=== PATIENT | female | born 1995 | race Caucasian/White ===

== ENCOUNTER 2017-02-21 08:46 | Inpatient (IN) | payer BC ==
[~2017-02-21 08:46] MED LIST: Buffered Lidocaine 0.9% SYRIN* 5 ML/SYR SYRINGE INTRADERM ONE; Buffered Lidocaine 0.9% SYRIN* 5 ML/SYR SYRINGE ONE; Ciprofloxacin 400MG IVPREMIX(* 400 MG/200 ML BAG ONE; Clindamycin 900 MG IVPREMIX(* 900 MG/50 ML SDV IV ONE; Dexamethasone IV* 4 MG/ML 1 ML (4 MG) IV SLOW PU ONE; Dexamethasone IV* 4 MG/ML 1 ML (4 MG) ONE; Famotidine IV* 10 MG/ML 2 ML (20 mg) IV ONE; Famotidine IV* 10 MG/ML 2 ML (20 mg) ONE; Heparin VIAL(*) 5000 UNITS/ML VIAL (FIVE THOUSAND) ONE
[2017-02-21] MEDS ORDERED: Midazolam* 1 MG/ML 10 ML VIAL (10 MG) ONE (10:53)
[2017-02-21] MEDS ORDERED: fentaNYL* 50 MCG/ML 5 ML VIAL (250 MCG VIAL) ONE (10:53)
[2017-02-21] MEDS ORDERED: Bupivacaine 0.25% SDV* 30 ML ONE ×2 (11:10→12:07)
[2017-02-21] MEDS ORDERED: Lidocaine 2% PF * 5 ML VIAL ONE (11:13)
[2017-02-21] MEDS ORDERED: Propofol* 10 MG/ML 20 ML BTL IV PUSH ONE (11:13)
[2017-02-21] MEDS ORDERED: Ondansetron INJ* 2 MG/ML VIAL ONE ×2 (11:13→13:27)
[2017-02-21] MEDS ORDERED: Ketorolac INJ* 30 MG/ML 1 ML VIAL ONE (11:13)
[2017-02-21] MEDS ORDERED: DiMENhydriNATE IV* 50 MG/ML VIAL IV PUSH PRN (11:58)
[2017-02-21] MEDS ORDERED: Scopolamine 1.5 mg* PATCH TRANSDERM PRN (11:58)
[2017-02-21] MEDS ORDERED: fentaNYL* 50 MCG/ML 2 ML VIAL (100 MCG VIAL) IV PRN (11:58)
[2017-02-21] MEDS ORDERED: Ondansetron INJ* 2 MG/ML VIAL IV PRN ×3 (11:58→13:00)
[2017-02-21] MEDS ORDERED: HYDROmorphone INJ* 1 MG/ML CARPUJECT SYRINGE IV PRN (11:58)
[2017-02-21] MEDS ORDERED: fentaNYL* 50 MCG/ML 2 ML VIAL (100 MCG VIAL) ONE ×2 (12:04→12:43)
[2017-02-21] MEDS ORDERED: diPHENhydraMINE IV* 50 MG/ML 1 ml VIAL (BENADRYL) SLOW PUSH PRN ×2 (12:58→13:00)
[2017-02-21] MEDS ORDERED: Ketorolac INJ* 30 MG/ML 1 ML VIAL IV PRN (12:58)
[2017-02-21] MEDS ORDERED: HYDROmorphone INJ* 2 MG/ML CARPUJECT SYRINGE IV PRN (12:58)
[2017-02-21] MEDS ORDERED: HYDROcodone/ACET. 7.5/325 LIQ* 15 ML UDC PO PRN (13:00)
[2017-02-21] MEDS ORDERED: Acetaminophen ADULT LIQ* 650 MG/20.3 ML UDC PO PRN (13:00)
--- NOTE | 2017-02-21 13:00 | SURGPN ---
Brief Operative Note - Surgery Procedures: Procedures Pre-OP Diagnoses: Clinically severe obesity Post-op Diagnosis: same Procedure: Laparoscopic sleeve gastrectomy Surgeon: Ryann Asst: Matti Brownthemartha: DIEGO Foster EBL: minimal IVF: 1200cc LR Specimen: portion of stomach Drains: none
[2017-02-21] MEDS ORDERED: Dextrose 50% Syringe 50 ML* 25 GM/50 ML SYRINGE IV PUSH PRN (13:03)
[2017-02-21] MEDS ORDERED: Scopolamine 1.5 mg* PATCH ONE (13:28)
[2017-02-21] MEDS ORDERED: Heparin VIAL(*) 5000 UNITS/ML VIAL (FIVE THOUSAND) SUBCUT SCH (14:00)
[2017-02-21] MEDS: Ketorolac INJ* 30 MG/ML 1 ML VIAL IV PRN (17:35)
[2017-02-21] MEDS ORDERED: PROCHLORPERAZINE INJ 5 MG/ML 2 ML VIAL IV PRN (18:01)
[2017-02-21] MEDS: Insulin LISPRO* 1 UNITS UNIT SUBCUT SCH (18:17)
[2017-02-21] MEDS: HYDROmorphone INJ* 2 MG/ML CARPUJECT SYRINGE IV PRN (19:59)
[2017-02-21] MEDS ORDERED: Famotidine IV* 10 MG/ML 2 ML (20 mg) IV SLOW PU SCH (21:00)
[2017-02-21] MEDS: Heparin VIAL(*) 5000 UNITS/ML VIAL (FIVE THOUSAND) SUBCUT SCH (22:01)
[2017-02-21] MEDS: Famotidine IV* 10 MG/ML 2 ML (20 mg) IV SLOW PU SCH (22:01)
[2017-02-22] MEDS: Insulin LISPRO* 1 UNITS UNIT SUBCUT SCH ×3 (00:02→12:09)
[2017-02-22] MEDS: Ketorolac INJ* 30 MG/ML 1 ML VIAL IV PRN ×2 (01:53→07:55)
[2017-02-22] MEDS: Heparin VIAL(*) 5000 UNITS/ML VIAL (FIVE THOUSAND) SUBCUT SCH (05:21)
[2017-02-22] MEDS: HYDROmorphone INJ* 2 MG/ML CARPUJECT SYRINGE IV PRN (05:21)
[2017-02-22 07:34] VITALS: BP 131/73
[2017-02-22] MEDS: Famotidine IV* 10 MG/ML 2 ML (20 mg) IV SLOW PU SCH (09:41)
[2017-02-22] MEDS ORDERED: D5W 1/2 NS KCl 20 Meq 1000 ML* 1,000 ML IV SCH ×2 (13:00→13:01)
--- NOTE | 2017-02-22 21:37 | DS ---
CC: ; Dr. Garzon, [facility] * DISCHARGE SUMMARY: DATE OF ADMISSION: 02/21/17 DATE OF DISCHARGE: 02/22/17 HOSPITAL COURSE: Ms. Perez is 21-year-old female, worked up as an outpatient with diagnosis of clinically severe obesity, who presented on same day of surgery on 02/21/17 and underwent a laparoscopic sleeve gastrectomy, uneventful procedure. The patient was transferred to the PACU and then on to the short- stay surgical unit. She was maintained n.p.o. in the overnight time, was given IV fluids and by postoperative day 1, was started on clear diet, tolerated it well and was planned for discharge home. PHYSICAL EXAMINATION: On day of discharge, the patient was examined. She was afebrile. Vital signs were stable. Alert, oriented x3, in no apparent distress. Head, ears, eyes, nose, and throat: Normocephalic, atraumatic. Sclerae anicteric. Mucous membranes are moist. Lungs: Clear to auscultation bilaterally. Abdomen: Soft, nondistended, nontender. Her dressing is intact. Extremities: Within normal limits. No calf tenderness. PLAN: Discharge home. Follow up on Sunday at [facility]. The patient will resume her multivitamins. We will hold her metformin. She will stop ibuprofen p.r.n. and the patient understands the plan. She understands to contact our office should there be any problems in the early postoperative course. [id number]/[facility] #: [id number] MIRI
[2017-02-24] MEDS ORDERED: Scopolamine PATCH Remove* 1 NOTE MISC PATCH OFF ONE (11:59)
--- NOTE | 2017-02-27 23:38 | OP ---
CC: Rosy Robles NP; [facility] * DATE OF OPERATION: 02/21/17 - ROOM #[id number] DATE OF : [birth year] SURGEON: Ernesto Garzon MD QUALITY ASSURANCE COACH: GEOFFREY Romero ANESTHESIOLOGIST: Dr. Foster. ANESTHESIA: General Anesthesia. PRE-OP DIAGNOSIS: Clinically severe obesity. POST-OP DIAGNOSIS: Clinically severe obesity. OPERATIVE PROCEDURE: Laparoscopic sleeve gastrectomy. ESTIMATED BLOOD LOSS: Minimal blood loss. FLUIDS: 1200 cc of crystalloid fluid given. SPECIMEN: Portion of stomach. DRAINS: None. DESCRIPTION OF PROCEDURE: The patient was identified in the preoperative area, case was discussed with her and her family members. She signed consent and was marked, and brought to the operating room, placed on the operating room table in the supine position. Preoperative antibiotics were given. Sequential devices were placed on bilateral lower extremities. General anesthesia was induced and the patient's abdomen was prepped and draped in the standard surgical fashion. Time- out was performed. Folds of the umbilicus were elevated anteriorly and a Veress needle was attempted to be inserted in the abdominal cavity. This proved difficult. We were not able to insufflate the abdomen and so this was abandoned. An incision was made at the Hare's point two fingerbreadths below the left costal margin. This was deepened down to the fascia which was elevated and a Veress needle inserted into the abdominal cavity, which then easily insufflated to a pressure of 15 mmHg without any difficulty. A 12-mm trocar was inserted at the upper midline. Laparoscope was inserted through this. There was no evidence of injury from the trocar insertion or from the Veress needle, which was then removed. We also reviewed the umbilicus and it showed no evidence of entry into the abdomen through that attempted umbilical Veress needle insertion. Next , two 5-mm were placed in the left upper quadrant and then a 12-mm in the right upper quadrant. Table was placed in the deep reverse Trendelenburg. Jessee retractor was inserted through the subxiphoid port site and the liver was retracted anteriorly into the right to expose the gastroesophageal fat pad. The fat pad was grasped and retracted towards the right lower quadrant. Blunt dissection was carried out to expose the left crura. There was no evidence of hiatal hernia. Next, approximately 6 cm from pylorus was counted off along the greater curvature. A retrogastric dissection was carried out and the vasculature of the greater curvature was taken right up to the angle of His with LigaSure device. We also took the posterior attachments until the stomach was able to be completely rotated along its axis. Hemostasis was excellent and next a 60-mm purple LISANDRA stapling device with reinforcement strips was placed at approximately 6 cm from the pylorus and the greater curvature and extending this towards the incisura. A 40-Swiss bougie was then inserted distal to this into the distal antrum and the stapler was taken. We sleeve with additional johnna of the same type with 60-mm LISANDRA staplings with reinforcement straps right up to the angle of His. The last staple was a 45-mm with similar strips. The staple line lay flat without any evidence of corkscrewing. Hemostasis was excellent. The resected portion of the stomach was then placed in an endoscopic retrieval bag. The Jessee retractor was removed. We did note that there were some ischemic changes to the superior aspect of the spleen. The right upper quadrant incision was then dilated with Carmen clamp and we removed the specimen. Next, a Weck fascial device was used to close the right upper quadrant port site using a 0 Polysorb suture. The abdomen was then allowed to collapse. Trocars were removed under direct vision and all 5 skin incisions were reapproximated with skin johnna followed by sterile dressing. The patient tolerated the procedure well, was woken up in the OR, transferred to PACU in stable condition. [id number]/[facility] #: [id number] MIRI
== END 2017-02-22 13:40 | disposition home or self-care (01) | DRG 403 ==
LOC: AA 08:46 → SSU 15:14
PROVIDERS: ADMIT Surgery; ATTEND Surgery
PROC: 0DB64Z3 Excision of Stomach, Percutaneous Endoscopic Approach, Vertical (ICD-10-PCS; principal; 2017-02-21 10:00)
DX: E66.01 Morbid (severe) obesity due to excess calories (principal); E88.81 Metabolic syndrome and other insulin resistance; G47.33 Obstructive sleep apnea (adult) (pediatric); J45.909 Unspecified asthma, uncomplicated; Z82.49 Family history of ischemic heart disease and other diseases of the circulatory system; Z80.3 Family history of malignant neoplasm of breast; Z88.1 Allergy status to other antibiotic agents; Z83.49 Family history of other endocrine, nutritional and metabolic diseases; Z68.38 Body mass index [BMI] 38.0-38.9, adult
CPT/HCPCS: 43775; 81025; 88307; A9270-GY; J0744; J0780; J1100; J1170; J1644; J1885; J2250; J2405; J2704; J3010

== ENCOUNTER → 2018-06-19 13:33 | Day surgery (SDC) | payer BC ==
--- NOTE | 2018-06-19 10:15 | HP ---
HISTORY AND PHYSICAL: DATE OF ADMISSION: 06/19/18 The patient was seen on 06/17/18 in the emergency room. HISTORY OF PRESENT ILLNESS: Ms. Perez is a 23-year-old female known to me after undergoing a laparoscopic sleeve gastrectomy in February 2017. The patient's postoperative course has been uneventful, and she has done well and lost over 60 pounds since the OR. The patient presented to the emergency room with 1-day history of significant epigastric pain, radiating to the back. It was accompanied with decreased appetite but no nausea, no vomiting. The patient described similar symptoms within the past 2 weeks. She felt this was a reflux and took Tums as she had in the past, but this time without any effect. Pain was relieved with rest and with narcotics, possibly aggravated with a late night chicken wings that she had eaten while working. The patient is a nurse at the hospital. Workup in the emergency room included ultrasound and labs. These were reviewed. PAST MEDICAL HISTORY: 1. Morbid obesity. 2. Gastroesophageal reflux. 3. Tendonitis. PAST SURGICAL HISTORY: 1. Sleeve gastrectomy. 2. Orthopedic surgery. MEDICATION LIST: Includes: 1. Omeprazole. 2. Multivitamins. 3. As needed Zofran. ALLERGIES: AMOXICILLIN and CLAVULANIC ACID. FAMILY HISTORY: Noncontributory. 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 Denies alcohol use. REVIEW OF SYSTEMS: Shortness of breath with this onset of pain. Otherwise good exercise tolerance. No cardiac disease. Weight loss as described above. No fevers or chills. No irritable bowel symptoms. No change in bowel habits. No endocrine disorders. No bleeding or clotting disorders. PHYSICAL EXAMINATION GENERAL: Alert and oriented x3. VITAL SIGNS: In the emergency room, the patient was afebrile. Vital signs are stable. HEAD, EYES, EARS, NOSE, AND THROAT: Normocephalic, atraumatic. Sclerae anicteric. Mucous membranes are moist. LUNGS: Clear to auscultation bilaterally. ABDOMEN: Soft, nondistended, tender in the epigastrium with negative Cantu sign. No masses or hernias noted. No CVA tenderness. EXTREMITIES: Within normal limits. RECTAL: Exam not performed. DIAGNOSTIC STUDIES/LABORATORY DATA: The patient underwent labs which showed white count of 8.1 and normal CRP. She did have mildly elevated total bilirubin of 1.6 and elevated transaminases of 570 and 420. Normal lipase. The patient underwent an ultrasound. The images were also reviewed and was consistent with gallstones without secondary findings of cholecystitis with no gallbladder wall thickening. Common bile duct was 2 mm. IMPRESSION: Biliary colic, status post bariatric surgery with significant weight loss, who I feel would benefit from laparoscopic cholecystectomy and this is recommended to her. She does have elevated transaminases and bilirubin. For this reason, I would like to repeat her labs prior to any surgical intervention. Currently, the patient feels well and I have discussed the planning of surgery with her. She feels comfortable going home from the emergency room and having surgery performed on Sunday. PLAN/RECOMMENDATIONS: I outlined the details of procedure going over the risks , benefits, and alternatives to laparoscopic cholecystectomy. The patient agrees to proceed. Her questions were answered. She understands the potential complications, which included but not limited to bleeding, infection, common bile duct injury, retained common bile duct stones, bile leak, need for additional procedures, need for open procedure. She is scheduled for Sunday afternoon. She will stay away from fatty foods at this point. I will not give her antibiotics. We will give her medications for pain should the colic return between now and the surgery day. The patient's questions were answered and she is discharged from the ER. [id number]/[facility] #: [id number] MIRI
[~2018-06-19 13:33] MED LIST changes: -Buffered Lidocaine 0.9% SYRIN* 5 ML/SYR SYRINGE INTRADERM ONE; -Buffered Lidocaine 0.9% SYRIN* 5 ML/SYR SYRINGE ONE; +Buffered Lidocaine 1% SYRIN* 1 ML/SYRINGE INTRADERM ONE; +Bupivacaine 0.25% EPI 200,000* 30 ML SDV ONE; -Ciprofloxacin 400MG IVPREMIX(* 400 MG/200 ML BAG ONE; -Clindamycin 900 MG IVPREMIX(* 900 MG/50 ML SDV IV ONE; +Clindamycin 900 MG/D5W BAG(*) 900 MG/50 ML BAG IVPB ONE; -Dexamethasone IV* 4 MG/ML 1 ML (4 MG) IV SLOW PU ONE; -Dexamethasone IV* 4 MG/ML 1 ML (4 MG) ONE; +DiMENhydriNATE IV* 50 MG/ML VIAL ONE; -Famotidine IV* 10 MG/ML 2 ML (20 mg) IV ONE; -Famotidine IV* 10 MG/ML 2 ML (20 mg) ONE; +GENTAMICIN ADULT IVPB ONE; -Heparin VIAL(*) 5000 UNITS/ML VIAL (FIVE THOUSAND) ONE; +Ketorolac INJ* 30 MG/ML 1 ML VIAL ONE; +Lactated Ringers 1000 ML Bag* 1,000 ML IV SCH; +Lidocaine 2% PF * 5 ML VIAL ONE; +NS 0.9% IVPB ONE; +Naloxone* 0.4 MG/ML 1 ML VIAL IV PRN; +Ondansetron INJ* 2 MG/ML VIAL IV PRN; +Ondansetron INJ* 2 MG/ML VIAL ONE; +Propofol* 10 MG/ML 20 ML BTL ONE; +Rocuronium* 10 MG/ML VIAL ONE; +Sodium Citrate/Citric Acid* 15 ML UDC ONE; +Sodium Citrate/Citric Acid* 15 ML UDC PO ONE; +Sugammadex * 200 MG/2 ML VIAL IV PUSH ONE; +fentaNYL* 50 MCG/ML 2 ML VIAL (100 MCG VIAL) ONE; +hydrALAZINE IV* 20 MG/ML VIAL ONE
--- NOTE | 2018-06-19 15:50 | BRIEFOPN ---
Brief Operative Note - Surgery Procedures: Procedures Pre-OP Diagnoses: Chronic cholecystitis Post-op Diagnosis: same Procedure: Laparoscopic cholecystectomy Surgeon: Ryann Asst: GEOFFREY Huff; RAMEZ Xie Anethesia: DIEGO Tarango EBL: minimal IVF: 900ccLR Specimen: gallbladder Drains: none
[2018-06-19] MEDS: fentaNYL* 50 MCG/ML 2 ML VIAL (100 MCG VIAL) IV PRN ×3 (16:10→16:28)
[2018-06-19 18:49] VITALS: BP 135/86
--- NOTE | 2018-06-19 23:58 | OP ---
CC: [facility] * DATE OF OPERATION: 06/19/18 - [facility] DATE OF : [birth year] SURGEON: Ernesto Garzon MD ASSISTANTS: John Spicer and GEOFFREY Xie student ANESTHESIOLOGIST: Dr. Tarango ANESTHESIA: General anesthesia. PRE-OP DIAGNOSIS: Chronic cholecystitis. POST-OP DIAGNOSIS: Chronic cholecystitis. OPERATIVE PROCEDURE: Laparoscopic cholecystectomy and diagnostic laparoscopy. ESTIMATED BLOOD LOSS: Minimal. FLUIDS: 1 L of crystalloid fluid given. SPECIMEN: Gallbladder. DESCRIPTION OF PROCEDURE: The patient was identified in the preoperative area. She was marked. Consent was signed. We discussed the case with her again. She had been evaluated Sunday of this week, where I described a laparoscopic cholecystectomy to her in detail, going over the risks, benefits and alternatives and the patient wished to proceed understanding these. She was taken to the operating room, placed on the operating table in supine position. Preoperative antibiotics were given. Sequential devices were placed on bilateral lower extremities and general anesthesia was induced. The patient' s abdomen was prepped and draped in standard surgical fashion. A time-out was performed. An umbilical incision was made, the skin was grasped with towel clamps and a Veress needle inserted into the abdominal cavity which was then allowed to insufflate to a pressure of 15 mmHg. The patient tolerated insufflation well. Veress needle was removed and a 5 mm Optiview was then inserted. Laparoscope was inserted through this and there was no evidence of injury from the trocar insertion. Review of the abdomen showed normal appearing bowel and omentum. There is no free fluid. Additional trocars were then placed in the following position: A 12 mm in the subxiphoid area and two 5 mm along the right costal margin. Table was repositioned. The fundus of the gallbladder was grasped and elevated above the liver. There are mild inflammatory changes. The infundibular region was grasped and retracted towards the right lower quadrant. After scissoring off the duodenal attachments from this, we then took the peritoneum off the medial aspect of the gallbladder and also lateral aspect. The cystic duct and common bile duct were identified and got a clear view. The cystic artery was isolated and the cystic duct was isolated. They were both doubly clipped and ligated and the gallbladder was removed from the liver bed and placed in the Endoscopic retrieval bag. Review of the cystic duct stumps and cystic artery stumps showed no bleeding or bile. Review of the abdomen, again no free fluid. The bowel appeared intact. We lifted up the left lateral aspect of the liver to expose the sleeve of stomach. We did not see any obvious hiatal hernia. The sleeve of stomach appeared with normal orientation without any twisting. At this point, we then took the gallbladder out in its Endoscopic retrieval bag from the subxiphoid port and passed it off as specimen. The abdomen was allowed to collapse. Trocar was removed under direct vision and all 4 skin incisions were reapproximated with 4- 0 Monocryl subcuticular sutures followed by Steri-Strips and sterile dressing. The patient tolerated the procedure well. [id number]/[facility] #: [id number] MTDRamy
== END | disposition home or self-care (01) ==
LOC: OR 13:33
PROVIDERS: ATTEND Surgery
DX: K80.10 Calculus of gallbladder with chronic cholecystitis without obstruction (principal); K21.9 Gastro-esophageal reflux disease without esophagitis; E66.01 Morbid (severe) obesity due to excess calories; Z98.84 Bariatric surgery status
CPT/HCPCS: 81025; 88304; A9270-GY; J0360; J1240; J1580; J1885; J2405; J2704; J3010